=== PATIENT | male | born 1995 ===

== ENCOUNTER 2020-04-13 15:06 | Outpatient (REF) | payer OTHER, SELFPAY | END 2020-04-13 15:07 | disposition home or self-care (01) | LOC: HO.LAB 15:06 | PROVIDERS: Visit Provider Internal Medicine | DX: Z20.828 Contact with and (suspected) exposure to other viral communicable diseases (principal) | CPT/HCPCS: C9803; U0003 ==

== ENCOUNTER 2022-09-09 00:10 | Emergency (ER) | payer MEDICAID, SELFPAY ==
--- NOTE | ~2022-09-09 | CT_ITS ---
EXAMINATION: CT ABDOMEN AND PELVIS WITHOUT CONTRAST CLINICAL INFORMATION: Left flank pain, question stone COMPARISON: 06/16/2017 TECHNIQUE: Multidetector volumetric imaging was performed from the superior aspect of the liver through the pubic symphysis. Sagittal and coronal reformatted images were obtained on the technologist's workstation. This CT examination was performed using dose optimization techniques as appropriate, variously including the following: *Automated exposure control *Adjustment of mA and/or kV according to patient size (this includes techniques or standardized protocols for targeted exams where dose is matched to indication/reason for exam; i.e. extremities or head) *Use of iterative reconstruction technique DLP: 751 mGy-cm FINDINGS: LUNG BASES: The visualized lung bases are unremarkable. LIVER, GALLBLADDER, AND BILIARY TREE: The liver is normal in size, shape, and attenuation. No focal hepatic lesion or biliary ductal dilatation is identified. The gallbladder is unremarkable with no evidence of radiopaque gallstones, gallbladder wall thickening, or obvious pericholecystic inflammatory changes. PANCREAS: Unremarkable. SPLEEN: Unremarkable. ADRENAL GLANDS: Unremarkable. KIDNEYS AND URETERS: There is mild left hydronephrosis, likely sequelae of a 2 mm calculus which is in the bladder near the left ureterovesicular junction. No right hydronephrosis. BLADDER: Mildly distended, with a 2 mm calculus noted near the left ureterovesicular junction. GASTROINTESTINAL TRACT: Mild colonic diverticulosis. The small and large bowel are otherwise unremarkable without evidence of obstruction or pericolonic inflammatory change. The appendix is unremarkable. No free fluid or free air is seen. ABDOMINAL WALL: No significant hernia is appreciated. LYMPH NODES: Normal. VASCULAR: Unremarkable. PELVIC VISCERA: Unremarkable. OSSEOUS STRUCTURES: Bilateral L5 pars defects. CT/CT abdomen pelvis wo IV con IMPRESSION: Mild left hydronephrosis, likely sequelae of a 2 mm calculus which is in the bladder near the left ureterovesicular junction.
[2022-09-09 00:11] VITALS: BP 151/87; PULSE 84; RESP 18; TEMP 36.4; O2SAT 98; BMI 37.1
[2022-09-09 00:36] LABS: Appearance Urine Clear; Color Urine Yellow; Glucose Urine UA Negative (Negative); Leukocyte Esterase Urine Negative (Negative); Nitrite Urine Negative (Negative); PH 5.5 (5.0-9.0); Specific Gravity - Urine >= 1.030 (1.005-1.025); UMIC TRIGGER UACC YES; Urine Blood Large (3+) (Negative); Urine Ketones Negative (Negative); Urine Protein Negative (Neg-Trace)
[2022-09-09 00:44] LABS: MANUAL DIFF FLAG NO
--- NOTE | 2022-09-09 00:45 | ED.ABDPAIN ---
HPI - Abdominal Pain General Chief Complaint: Abdominal Pain Stated Complaint: Kidney Stones? Time Seen by Provider: 09/09/22 00:45 Source: patient Mode of arrival: ambulatory Limitations: no limitations History of Present Illness HPI narrative: Patient with History of kidney stone once in the past comes in for sudden onset of pain in the left flank area prior to arrival aside with nausea no hematuria no urine complaints pain rated overlies to mostly left flank area coming to the left abdomen no testicular pain no fever or chills no hematuria Related Data Previous Rx's Medication Instructions Recorded oxycodone-acetaminophen 5 mg-325 1 tab PO Q6H PRN pain #20 tabs 09/09/22 mg tablet (Percocet) tamsulosin 0.4 mg capsule (Flomax) 0.4 mg PO BEDTIME #10 caps 09/09/22 Allergies Allergy/AdvReac Type Severity Reaction Status Date / Time No Known Allergies Allergy Unverified 02/06/20 17:48 Review of Systems Review of Systems Yes all other systems are reviewed and are negative [facility] Social History Social History Alcohol intake: never Smoked in Last 30 Days: No Use of substances other than those prescribed or required for medical reasons: No Advance Directives: No Advance Directives Information Provided: Yes Physical Exam ED Vital Signs: Vital Signs - 24 hr 09/09/22 00:11 Temperature 97.6 F Pulse Rate 84 Respiratory Rate 18 Blood Pressure 151/87 H Pulse Oximetry 98 Oxygen Delivery Method Room Air BMI result Body Mass Index 37.1 Appearance: Alert. Oriented X3. Mild distress ENT: Pharynx normal. Oral Mucosa moist Neck: Normal inspection. Neck supple. CVS: Normal heart rate and rhythm. Pulses normal. Respiratory: No respiratory distress. Equal air entry bilateral, no wheezing/rales/rhonchi Abdomen: Soft and nontender. Bowel sounds are present, no mass palpable,L CVA tenderness ++ Skin: Skin warm and dry. Normal skin color. Normal skin turgor. Extremities: No lower extremity edema. No calf tenderness Neuro: Oriented X 3. No motor deficit. Medical Decision Making Medical Decision Making [facility] Narrative: Patient CT scan showed 2 mm UVJ stone with mild hydro feeling much better after the IV pain medication discharge patient home Lab Data [facility] Lab Attestation statement: I reviewed the patient's lab results. 09/09/22 00:40 09/09/22 00:40 Labs: Lab Results 09/09/22 09/09/22 09/09/22 Range/Units 00:31 00:40 00:40 WBC 7.2 (4.8-10.8) X10*3/uL RBC 5.28 (4.60-5.80) X10*6/uL Hgb 15.7 (14.0-18.0) g/dl Hct 45.6 (42.0-52.0) % MCV 86.4 (80.0-98.0) fL MCH 29.7 (27.0-33.0) pg MCHC 34.4 (31.0-36.0) g/dl RDW 11.8 (11.0-16.0) % Plt Count 400 (160-400) X10*3/uL MPV 9.3 L (9.4-12.4) fL Immature Gran % (Auto) 1.0 H (0.0-0.4) % Neut % (Auto) 55.4 (45-73) % Lymph % (Auto) 35.3 (20-40) % [place] % (Auto) 7.1 (2-11) % Eos % (Auto) 0.8 (0-4) % Baso % (Auto) 0.4 (0-2) % Lymph # (Auto) 2.5 (1.2-4.9) X10*3/uL [place] # (Auto) 0.5 (0.1-1.2) X10*3/uL Eos # (Auto) 0.1 (0.0-0.4) X10*3/uL Baso # (Auto) 0.0 (0.0-0.2) X10*3/uL Abs Immat Gran (auto) 0.07 H (0.00-0.03) X10*3/uL Absolute Neuts (auto) 4.0 (2.0-8.3) x10*3/uL Absolute Nucleated RBC 0.000 (0.0-0.012) X10*3/uL Nucleated RBC % (auto) 0.0 (0.0-0.2) /100WBC Sodium 137 (135-145) mmol/L Potassium 5.2 H (3.3-5.1) mmol/L Chloride 107 (96-108) mmol/L Carbon Dioxide 19 L (22-29) mmol/L Anion Gap 16 (12-20) BUN 10 (9-16) mg/dL Creatinine 0.82 (0.5-1.4) mg/dL Estim Creat Clear Calc 155.8 Estimated GFR > 60 Random Glucose 131 H (60-115) mg/dL Calcium 9.3 (8.4-10.2) mg/dL Urine Color Yellow Urine Appearance Clear Urine pH 5.5 (5.0-9.0) Ur Specific [place] >= 1.030 H (1.005-1.025) Urine Protein Negative (Neg-Trace) mg/dL Urine Glucose (UA) Negative (Negative) mg/dL Urine Ketones Negative (Negative) mg/dL Urine Blood Large (3+) H (Negative) Urine Nitrite Negative (Negative) Ur Leukocyte Esterase Negative (Negative) Urine RBC 6-10 H (0-2) /HPF Urine WBC 0-5 (0-5) /HPF Ur Squamous Epith Cells 0-2 (0-2) /HPF Other Crystals Present Urine Bacteria None Seen (None Seen) Hyaline Casts 0-2 (0-2) /LPF Medications Administered Discontinued Medications Generic Name Dose Route Start Last Admin Trade Name Freq PRN Reason Stop Dose Admin Sodium Chloride 1,000 mls @ 999 mls/hr 09/09/22 00:46 09/09/22 02:00 Ns IV 09/09/22 01:46 Infused .Q1H1M ONE Infusion Ketorolac Tromethamine 30 mg 09/09/22 00:50 09/09/22 00:58 Ketorolac Tromethamine 30 Mg/Ml Vial IVPUSH 09/09/22 00:51 30 mg ONCE ONE Administration Morphine Sulfate 4 mg 09/09/22 00:46 09/09/22 00:58 Morphine Sulfate 4 Mg/Ml Cartridge IVPUSH 09/09/22 00:47 4 mg ONCE ONE Administration Protocol Ondansetron HCl 4 mg 09/09/22 00:46 09/09/22 00:58 Ondansetron Hcl 4 Mg/2 Ml Vial IVPUSH 09/09/22 00:47 4 mg ONCE ONE Administration Discharge Plan Discharge Clinical Impression: Calculus of kidney Patient Disposition: Home, Self-Care Instructions: Kidney Stones (ED) Additional Instructions: Drink plenty of fluids Take pain medication as prescribed Flomax daily to dilate the ureter until you pass a stone Prescriptions: New oxycodone-acetaminophen [Percocet] 5-325 mg tablet 1 tab PO Q6H PRN (Reason: pain) Qty: 20 0RF Rx Instructions: Partial Fill upon patient request. tamsulosin [Flomax] 0.4 mg capsule 0.4 mg PO BEDTIME Qty: 10 0RF Referrals: Esteban Walker MD [Physician] - 3 days Stand Alone Forms: Work/School Release Interventions: ED Discharge Assessment Last Done: 09/09/22 03:03 Discharge Date/Time: 09/09/22 03:03
[2022-09-09 00:46] LABS: Basophils Percent Auto 0.4 % (0-2); Eosinophils Absolute Auto 0.1 X10*3/uL (0.0-0.4); Eosinophils Percent Auto 0.8 % (0-4); Hematocrit 45.6 % (42.0-52.0); Hemoglobin 15.7 g/dl (14.0-18.0); Imm Gran Abs Auto 0.07 X10*3/uL (0.00-0.03); Lymphocytes Absolute Auto 2.5 X10*3/uL (1.2-4.9); Lymphocytes Percent Auto 35.3 % (20-40); Mean Corpuscular HGB Conc 34.4 g/dl (31.0-36.0); Mean Corpuscular Hemoglobin 29.7 pg (27.0-33.0); Mean Corpuscular Volume 86.4 fL (80.0-98.0); Mean Platelet Volume 9.3 fL (9.4-12.4); Monocytes Absolute Auto 0.5 X10*3/uL (0.1-1.2); Monocytes Percent Auto 7.1 % (2-11); Neutrophils Percent Auto 55.4 % (45-73); Platelet Count 400 X10*3/uL (160-400); Red Blood Count 5.28 X10*6/uL (4.60-5.80); Red Cell Distribution Width 11.8 % (11.0-16.0); White Blood Count 7.2 X10*3/uL (4.8-10.8)
[2022-09-09 00:46] LABS: Bacteria Urine None Seen (None Seen); Hyaline Casts Urine 0-2 /LPF (0-2); Other Crystals Urine Present; Squamous Epithelial Cell Urine 0-2 /HPF (0-2); WBC Urine 0-5 /HPF (0-5)
[2022-09-09] MEDS: Ketorolac Tromethamine 30 MG/ML VIAL IVPUSH (00:58)
[2022-09-09] MEDS: ondansetron HCL 4 MG/2 ML VIAL IVPUSH (00:58)
[2022-09-09] MEDS: 0.9 % Sodium Chloride 1,000 ML 999 ML IV (00:58)
[2022-09-09] MEDS: Morphine Sulfate 4 MG/ML CARTRIDGE IVPUSH (00:58)
[2022-09-09 01:00] LABS: Anion Gap 16 (12-20); Blood Urea Nitrogen 10 mg/dL (9-16); Calcium 9.3 mg/dL (8.4-10.2); Carbon Dioxide 19 mmol/L (22-29); Chloride 107 mmol/L (96-108); Creatinine Clr Calc Pharmacy 155.8; Estimated Glomerular Filt Rate > 60; Glucose Random 131 mg/dL (60-115); Potassium 5.2 mmol/L (3.3-5.1); Sodium 137 mmol/L (135-145)
== END 2022-09-09 03:03 | disposition home or self-care (01) ==
PROVIDERS: Emergency Provider Internal Medicine
DX: N20.0 Calculus of kidney (principal); Z79.899 Other long term (current) drug therapy
CPT/HCPCS: 36415; 74176; 80048; 81001; 85025; 96361; 96374; 96375; 99284; 99285; J1885; J2270; J2405

== ENCOUNTER 2022-12-20 11:13 | Emergency (ER) | payer MEDICAID, SELFPAY ==
--- NOTE | ~2022-12-20 | US_ITS ---
EXAMINATION: US SOFT TISSUE HEAD AND NECK CLINICAL INFORMATION: Left flank pain, rule out stone. COMPARISON: CT scan of the abdomen and pelvis dated 09/09/2022. TECHNIQUE: Linear transducer grayscale and color Doppler examination of the left kidney was obtained. FINDINGS: Left kidney: 12.0 x 6.2 x 5.9 cm. An interpolar peripelvic cyst is seen measuring 1.1 cm. An adjacent echogenic focus measures 0.3 cm Doppler showed no abnormal vascular flow. No hydronephrosis. US/US renal LT IMPRESSION: 1. Small interpolar left renal cyst demonstrates benign features. Nonobstructing interpolar left intrarenal calculus. No other significant abnormality. 2. If the patient's symptoms persist or worsen, short-term repeat renal ultrasound can be performed as clinically indicated to assess for change.
--- NOTE | 2022-12-20 12:02 | ED_ITS ---
HPI - Abdominal Pain General Chief Complaint: Abdominal Pain Stated Complaint: Lower abd pain Time Seen by Provider: 12/20/22 13:57 Source: patient Mode of arrival: ambulatory History of Present Illness HPI narrative: 27-year-old male with history of renal colic presents with onset of left lower quadrant discomfort since last night without associated fever, chills, nausea, vomiting and denies any urinary symptoms. Related Data Previous Rx's Medication Instructions Recorded oxycodone-acetaminophen 5 mg-325 1 tab PO Q6H PRN pain #20 tabs 09/09/22 mg tablet (Percocet) tamsulosin 0.4 mg capsule (Flomax) 0.4 mg PO BEDTIME #10 caps 09/09/22 ketorolac 10 mg tablet 10 mg PO Q6H PRN pain 5 days #20 12/20/22 tabs tamsulosin 0.4 mg capsule (Flomax) 0.4 mg PO BEDTIME #4 caps 12/20/22 Allergies Allergy/AdvReac Type Severity Reaction Status Date / Time No Known Allergies Allergy Unverified 02/06/20 17:48 Review of Systems Review of Systems Pertinent positives and negatives as stated in HPI [facility] Past Medical History Source: nursing notes reviewed Social History Social History Alcohol intake: never Physical Exam ED Vital Signs: Vital Signs - 24 hr 12/20/22 12:03 Temperature 97.6 F Pulse Rate 88 Respiratory Rate 18 Blood Pressure 107/79 Pulse Oximetry 99 BMI result Body Mass Index 32.3 VITAL SIGNS: Reviewed. GENERAL: Well developed, well nourished, in no acute distress. HEAD: Normocephalic/atraumatic EYES: PERRLA, EOMI EARS: Ext canals without abnormality NOSE: Nares patent bilateral OROPHARYNX: no oral lesions noted, posterior pharynx clear NECK: Supple, no adenopathy LUNGS: Normal breath sounds. No adventitious sounds or accessory muscle use. SpO2<99> CARDIOVASCULAR: Regular rate and rhythm without noted murmurs ABDOMEN: Soft, left flank pain, non-distended with bowel sounds. MUSCULOSKELETAL: No tenderness, deformities, or effusions noted on gross inspection. EXTREMITIES: No cyanosis, clubbing or edema. SKIN: Inspection of the skin reveals no rashes NEUROLOGIC: Alert and oriented x 4. Strength and sensation to light touch were grossly intact x 4. Course Course Course Narrative: RME - 27 yo male presents to the ER for evaluation of 8/10 LUQ pain that started last night. Constant since this morning, worse with walking and palpation. No N/V/D. No urinary symptoms. Plan: labs and UA Medical Decision Making Medical Decision Making [facility] Narrative: 27-year-old male with history and clinical presentation absence of febrile state, nausea/vomiting/fevers/chills I have low clinical suspicion appendicitis, diverticulitis and suspect that this is likely renal colic for possible UTI. Patient given Tylenol, ibuprofen, Flomax. I reviewed all investigations and hematologic indices are negative for leukocytosis or left shift and there is no anemia or thrombocytopenia. Chemistry indices are grossly within normal limits without JEREMY or electrolyte abnormalities, liver enzyme values are within normal limits. Urinalysis n egative for hematuria or infection. Ultrasound does not demonstrate hydronephrosis. STONE Score: 3 On re-evaluation patient is feeling improved and will be discharged home on Flomax and combination analgesics with instructions to follow-up with urology. Patient was also given strict return precautions but once again the history and clinical exam are inconsistent with appendicitis or diverticulitis. Differential Diagnosis Differential Diagnoses: The differential diagnosis associated with the presentation includes Please see the discussion above Admission/Observation Consideration of admission/observation: Escalation of care including admission/observation considered Please see the discussion above Lab Data [facility] Lab Attestation statement: I reviewed the patient's lab results. Please see the discussion above 12/20/22 12:13 12/20/22 12:13 Labs: Lab Results 12/20/22 12/20/22 12/20/22 Range/Units 12:13 12:13 14:25 WBC 8.0 (4.8-10.8) X10*3/uL RBC 5.38 (4.60-5.80) X10*6/uL Hgb 16.1 (14.0-18.0) g/dl Hct 46.1 (42.0-52.0) % MCV 85.7 (80.0-98.0) fL MCH 29.9 (27.0-33.0) pg MCHC 34.9 (31.0-36.0) g/dl RDW 11.9 (11.0-16.0) % Plt Count 334 (160-400) X10*3/uL MPV 9.3 L (9.4-12.4) fL Immature Gran % (Auto) 0.4 (0.0-0.4) % Neut % (Auto) 65.3 (45-73) % Lymph % (Auto) 25.7 (20-40) % [place] % (Auto) 7.5 (2-11) % Eos % (Auto) 1.0 (0-4) % Baso % (Auto) 0.1 (0-2) % Lymph # (Auto) 2.1 (1.2-4.9) X10*3/uL [place] # (Auto) 0.6 (0.1-1.2) X10*3/uL Eos # (Auto) 0.1 (0.0-0.4) X10*3/uL Baso # (Auto) 0.0 (0.0-0.2) X10*3/uL Abs Immat Gran (auto) 0.03 (0.00-0.03) X10*3/uL Absolute Neuts (auto) 5.3 (2.0-8.3) x10*3/uL Absolute Nucleated RBC 0.000 (0.0-0.012) X10*3/uL Nucleated RBC % (auto) 0.0 (0.0-0.2) /100WBC Sodium 139 (135-145) mmol/L Potassium 4.5 (3.3-5.1) mmol/L Chloride 106 (96-108) mmol/L Carbon Dioxide 22 (22-29) mmol/L Anion Gap 16 (12-20) BUN 8 L (9-16) mg/dL Creatinine 0.75 (0.5-1.4) mg/dL Estim Creat Clear Calc 158.8 Estimated GFR > 60 Random Glucose 99 (60-115) mg/dL Calcium 9.8 (8.4-10.2) mg/dL Magnesium 1.9 (1.6-2.6) mg/dL Total Bilirubin 0.6 (0.0-1.0) mg/dL Direct Bilirubin 0.2 (0.0-0.5) mg/dL AST 14 (5-37) U/L ALT 31 (0-40) U/L Alkaline Phosphatase 70 (39-117) U/L Total Protein 8.0 (6.5-8.0) g/dL Albumin 4.4 (3.5-5.0) g/dL Lipase 14 (8-78) U/L Urine Color Yellow Urine Appearance Clear Urine pH 7.5 (5.0-9.0) Ur Specific [place] 1.020 (1.005-1.025) Urine Protein Negative (Neg-Trace) mg/dL Urine Glucose (UA) Negative (Negative) mg/dL Urine Ketones Negative (Negative) mg/dL Urine Blood Negative (Negative) Urine Nitrite Negative (Negative) Ur Leukocyte Esterase Negative (Negative) Radiology Impression Radiologist Impression: No hydronephrosis, otherwise my interpretation is in agreement with radiology's impression. Medications Administered Discontinued Medications Generic Name Dose Route Start Last Admin Trade Name Freq PRN Reason Stop Dose Admin Acetaminophen 975 mg 12/20/22 14:02 12/20/22 14:30 Acetaminophen 325 Mg Tablet PO 12/20/22 14:03 975 mg ONCE ONE Administration Ketorolac Tromethamine 15 mg 12/20/22 14:02 12/20/22 14:29 Ketorolac Tromethamine 15 Mg/Ml Vial IM 12/20/22 14:03 15 mg ONCE ONE Administration Tamsulosin HCl 0.4 mg 12/20/22 14:02 12/20/22 14:30 Tamsulosin Hcl 0.4 Mg Capsule PO 12/20/22 14:03 0.4 mg ONCE ONE Administration Discharge Plan Discharge Clinical Impression: Renal colic Patient Disposition: Home, Self-Care Instructions: Renal Colic (ED), Low Oxalate Diet (ED) Additional Instructions: 1. Increase the amount of water that you are drinking. Minimize carbonated and caffeinated beverages. 2. Tylenol 1000 mg, orally, every 6 hours as needed for pain control. Do not exceed 4000 mg within 24 hours. 3. I have sent a prescription for Flomax and Toradol to your pharmacy, you will also receive a referral to follow-up with urology. Return to the ER for any development of worsening abdominal pain, difficulty urination, fevers/chills/nausea/vomiting. Prescriptions: New ketorolac 10 mg tablet 10 mg PO Q6H PRN (Reason: pain) 5 Days Qty: 20 0RF Rx Instructions: Patient received Toradol in the emergency room tamsulosin [Flomax] 0.4 mg capsule 0.4 mg PO BEDTIME Qty: 4 0RF No Action oxycodone-acetaminophen [Percocet] 5-325 mg tablet 1 tab PO Q6H PRN (Reason: pain) Qty: 20 0RF Rx Instructions: Partial Fill upon patient request. tamsulosin [Flomax] 0.4 mg capsule 0.4 mg PO BEDTIME Qty: 10 0RF Referrals: Esteban Walker MD [Physician] -
[2022-12-20 12:03] VITALS: BP 107/79; PULSE 88; RESP 18; TEMP 36.4; O2SAT 99; BMI 32.3
[2022-12-20 12:17] LABS: MANUAL DIFF FLAG NO
[2022-12-20 12:18] LABS: Basophils Percent Auto 0.1 % (0-2); Eosinophils Absolute Auto 0.1 X10*3/uL (0.0-0.4); Hematocrit 46.1 % (42.0-52.0); Hemoglobin 16.1 g/dl (14.0-18.0); Imm Gran Abs Auto 0.03 X10*3/uL (0.00-0.03); Imm Gran Pct Auto 0.4 % (0.0-0.4); Lymphocytes Absolute Auto 2.1 X10*3/uL (1.2-4.9); Lymphocytes Percent Auto 25.7 % (20-40); Mean Corpuscular HGB Conc 34.9 g/dl (31.0-36.0); Mean Corpuscular Hemoglobin 29.9 pg (27.0-33.0); Mean Corpuscular Volume 85.7 fL (80.0-98.0); Mean Platelet Volume 9.3 fL (9.4-12.4); Monocytes Absolute Auto 0.6 X10*3/uL (0.1-1.2); Monocytes Percent Auto 7.5 % (2-11); Neutrophils Absolute Auto 5.3 x10*3/uL (2.0-8.3); Neutrophils Percent Auto 65.3 % (45-73); Platelet Count 334 X10*3/uL (160-400); Red Blood Count 5.38 X10*6/uL (4.60-5.80); Red Cell Distribution Width 11.9 % (11.0-16.0)
[2022-12-20 12:36] LABS: Alanine Aminotransferase 31 U/L (0-40); Albumin Level 4.4 g/dL (3.5-5.0); Alkaline Phosphatase 70 U/L (39-117); Anion Gap 16 (12-20); Aspartate Amino Transferase 14 U/L (5-37); Bilirubin Direct 0.2 mg/dL (0.0-0.5); Bilirubin Total 0.6 mg/dL (0.0-1.0); Blood Urea Nitrogen 8 mg/dL (9-16); Calcium 9.8 mg/dL (8.4-10.2); Carbon Dioxide 22 mmol/L (22-29); Chloride 106 mmol/L (96-108); Creatinine Clr Calc Pharmacy 158.8; Estimated Glomerular Filt Rate > 60; Glucose Random 99 mg/dL (60-115); Lipase 14 U/L (8-78); Magnesium 1.9 mg/dL (1.6-2.6); Potassium 4.5 mmol/L (3.3-5.1); Sodium 139 mmol/L (135-145)
[2022-12-20] MEDS: Ketorolac Tromethamine 15 MG/ML VIAL IM (14:29)
[2022-12-20] MEDS: Tamsulosin HCL 0.4 MG CAPSULE PO (14:30)
[2022-12-20] MEDS: Acetaminophen 325 MG TABLET 975 MG PO (14:30)
[2022-12-20 14:33] LABS: Appearance Urine Clear; Color Urine Yellow; Glucose Urine UA Negative (Negative); Leukocyte Esterase Urine Negative (Negative); Nitrite Urine Negative (Negative); PH 7.5 (5.0-9.0); Urine Blood Negative (Negative); Urine Ketones Negative (Negative); Urine Protein Negative (Neg-Trace)
--- NOTE | 2022-12-20 15:07 | PC.NURSE ---
patient resting in stretcher, respirations equal and unlabored. pt shows no signs of distress
[2022-12-20 15:33] VITALS: BP 117/62; PULSE 85; RESP 16; TEMP 37.1; O2SAT 97
== END 2022-12-20 15:49 | disposition home or self-care (01) ==
PROVIDERS: Physician Assistant; Emergency Provider Student in an Organized Health Care Education/Training Program
DX: N23 Unspecified renal colic (principal)
CPT/HCPCS: 36415; 76775; 80048; 80076; 81003; 83690; 83735; 85025; 96372; 99284; J1885

== ENCOUNTER 2022-12-20 14:31 | Outpatient (REF) | payer MEDICAID, SELFPAY | END 2022-12-20 14:32 | disposition home or self-care (01) | LOC: HO.LNP 14:31 | PROVIDERS: Visit Provider Advanced Practice Midwife | DX: Z13.89 Encounter for screening for other disorder (principal) | CPT/HCPCS: 87480; 87510; 87660 ==